=== PATIENT | male | born 1960 | race Caucasian/White ===

== ENCOUNTER 2016-10-24 19:14 | Emergency (ER) | payer OTHER ==
[2016-10-24] MEDS ORDERED: NS 0.9% 1000 ML* 1,000 ML IV ONE (19:39)
--- NOTE | 2016-10-24 20:13 | ED ---
Mayco Griffin Aidan, scribed for Nikhil Ohara MD on 10/24/16 at 2010 . Abdominal Pain/Male - HPI Summary HPI Summary: 55 y/o male presents to the ED with a complaint of acute, constant, moderate (4/ 10), mid-abdominal pain that began at 0900 this morning. Associated symptoms include 2 episodes of violent, brown vomiting, nausea, and 4 episodes of diarrhea today. The last time he vomited was just [employer]. According to the patient , he has only had a blueberry muffin, coffee, water, and marychuy beata today. Currently, he feels moderately better. According to his , he was last found well this morning just before heading to work. - History of Current Complaint Chief Complaint: EDNauseaVomitDiarrh Stated Complaint: N/V/D Time Seen by Provider: 10/24/16 19:35 Hx Obtained From: Patient, Family/Sales And Catering Coordinator - Onset/Duration: Sudden Onset, Lasting Hours, Resolved - the patient is currently feeling much better, however, his pain is not fully resolved Timing: Constant, Lasting Hours Severity Initially: Moderate Severity Currently: Mild Pain Intensity: 4 Pain Scale Used: 0-10 Numeric Location: Other - diffuse at middle abdomen Radiates: No Character: Sharp Aggravating Factor(s): Other: - unknown Alleviating Factor(s): Other: - unknown, however, the patient is currently feeling much better Associated Signs And Symptoms: Positive: Nausea, Vomiting - 2x, violent and brown, Diarrhea - 4x - Risk Factors Cardiac Risk Factors: Smoking - former smoker, Diabetes - Allergies/Home Medications Allergies/Adverse Reactions: Allergies Allergy/AdvReac Type Severity Reaction Status Date / Time Penicillins Allergy Severe Rash Verified 10/24/16 19:32 PMH/Surg Hx/FS Hx/Imm Hx Endocrine/Hematology History: Denies: Hx Diabetes, Hx Thyroid Disease Cardiovascular History: Reports: Hx Hypercholesterolemia, Hx Hypertension, Other Cardiovascular Problems/Disorders - TIA'03/HYPERCHOLESTEROLEMIA Respiratory History: Denies: Hx Asthma, Hx Chronic Obstructive Pulmonary Disease (COPD) GI History: Denies: Hx Ulcer Neurological History: Reports: Hx Transient Ischemic Attacks (TIA) - Surgical History Surgery Procedure, Year, and Place: Tonsillectomy as child Infectious Disease History: No Infectious Disease History: Denies: Hx Hepatitis, Hx Human Immunodeficiency Virus (HIV), History Other Infectious Disease, Traveled Outside the [place] in Last 30 Days - Family History Known Family History: Positive: Cardiac Disease, Diabetes - Social History Occupation: Employed Full-time Lives: With Family Alcohol Use: None Substance Use Type: Reports: None Hx Tobacco Use: Yes - CHEWING TOBBACCO Smoking Status (MU): Former Smoker Review of Systems Constitutional: Negative Eyes: Negative ENT: Negative Cardiovascular: Negative Respiratory: Negative Positive: Abdominal Pain, Vomiting, Diarrhea, Nausea Genitourinary: Negative Musculoskeletal: Negative Skin: Negative Neurological: Negative Psychological: Normal All Other Systems Reviewed And Are Negative: Yes Physical Exam Triage Information Reviewed: Yes Vital Signs On Initial Exam: Initial Vitals Temp Pulse Resp BP Pulse Ox 99.0 F 85 16 137/71 98 10/24/16 19:25 10/24/16 19:25 10/24/16 19:25 10/24/16 19:25 10/24/16 19:25 Vital Signs Reviewed: Yes Appearance: Positive: Well-Appearing, No Pain Distress Skin: Positive: Warm Head/Face: Positive: Normal Head/Face Inspection Eyes: Positive: TERRANCE ENT: Positive: Hearing grossly normal Neck: Positive: Supple Respiratory/Lung Sounds: Positive: Clear to Auscultation, Breath Sounds Present Cardiovascular: Positive: RRR Abdomen Description: Positive: Nontender, Soft Bowel Sounds: Positive: Present Musculoskeletal: Positive: Strength/ROM Intact Neurological: Positive: Sensory/Motor Intact, Alert, Oriented to Person Place, Time - [place] Coma Scale Coma Scale Total: 15 Diagnostics - Vital Signs Vital Signs Temp Pulse Resp BP Pulse Ox 10/24/16 19:25 99.0 F 85 16 137/71 98 - Laboratory Result Diagrams: 10/24/16 20:01 10/24/16 20:01 Lab Statement: Any lab studies that have been ordered have been reviewed, and results considered in the medical decision making process. Re-Evaluation - Re-Evaluation First Eval Change: Improved Abdominal Pain Fem Course/Dx - Course Course Of Treatment: 55 y/o male presents to the ED with a complaint of acute, constant, moderate (4/10), mid-abdominal pain that began at 0900 this morning. Associated symptoms include 2 episodes of violent, brown vomiting, nausea, and 4 episodes of diarrhea today. After examination, it is clear that the patient has gastroenteritis. - Diagnoses Provider Diagnoses: Gastroenteritis Discharge - Discharge Plan Condition: Stable Disposition: HOME Discharge Disposition Comment: Please follow up with your primary care physician within 2 days. Patient Education Materials: Gastroenteritis (ED) Referrals: Non Staff,Doctor [Primary Care Provider] - The documentation as recorded by the Mayco horton Aidan accurately reflects the service I personally performed and the decisions made by me, Nikhil Ohara MD.
[2016-10-24 20:14] LABS: Hematocrit 53 % (42-52); Mean Corpuscular HGB Conc 34 g/dl (31-36); Mean Corpuscular Hemoglobin 30 pg (27-31); Mean Corpuscular Volume 90 fL (80-94); Mean Platelet Volume 8 um3 (7.4-10.4); Red Cell Distribution Width 13 % (10.5-15); White Blood Count 11.4 10^3/ul (3.5-10.8)
[2016-10-24 20:26] LABS: Albumin 4.9 g/dL (3.2-5.2); BUN/Creatinine Ratio 22.9 (8-20); C Reactive Protein 20.53 mg/L (< 5.00); Calcium 9.4 mg/dL (8.6-10.3); EGFR Non-African American 64.6 (>60); Globulin 2.9 g/dL (2-4); Potassium 3.9 mmol/L (3.5-5.0); Total Bilirubin 2.8 mg/dL (0.2-1.0); Total Protein 7.8 g/dL (6.4-8.9)
[2016-10-24 21:23] VITALS: BP 129/64
== END 2016-10-24 21:21 | disposition home or self-care (01) ==
LOC: ED 19:14
DX: K52.9 Noninfective gastroenteritis and colitis, unspecified (principal); R11.2 Nausea with vomiting, unspecified; R19.7 Diarrhea, unspecified; R10.9 Unspecified abdominal pain; Z87.891 Personal history of nicotine dependence
CPT/HCPCS: 36415; 80053; 83690; 85025; 86140; 99282

== ENCOUNTER → 2017-05-03 09:05 | Emergency (ER) | payer OTHER ==
[~2017-05-03 09:05] MED LIST: Aspirin Low Dose CHEW TAB* 81 MG PO ONE; Ketorolac INJ* 30 MG/ML 1 ML VIAL IV PUSH ONE
[2017-05-03 10:13] LABS: Hematocrit 46 % (42-52); Hemoglobin 15.9 g/dl (14.0-18.0); Mean Corpuscular HGB Conc 35 g/dl (31-36); Mean Corpuscular Hemoglobin 31 pg (27-31); Mean Corpuscular Volume 90 fL (80-94); Mean Platelet Volume 8 um3 (7.4-10.4); Red Blood Count 5.09 10^6/ul (4.0-5.4); Red Cell Distribution Width 13 % (10.5-15); White Blood Count 5.4 10^3/ul (3.5-10.8)
--- NOTE | 2017-05-03 10:20 | RAD ---
Indication: Confusion. Remote history of LEFT-sided stroke. Comparison: February 28, 2004 Technique: Noncontrast CT vertex of skull through foramen magnum. Report: The sulci, ventricles, and basal cisterns are normal for age. Garcia matter white matter differentiation is preserved without evidence for edema. No intra or extra axial hemorrhage, mass, or fluid collection detected. Unremarkable visualized orbital contents. Unremarkable calvarium and skull base. Unremarkable scalp. The visualized paranasal sinuses and mastoid air spaces are clear. IMPRESSION: No acute intracranial process evident. Negative unenhanced head CT.
[2017-05-03 10:30] LABS: Albumin 4.6 g/dL (3.2-5.2); BUN/Creatinine Ratio 24.7 (8-20); Calcium 9.5 mg/dL (8.6-10.3); EGFR African American 103.7 (>60); EGFR Non-African American 80.7 (>60); Globulin 2.5 g/dL (2-4); Total Bilirubin 1.1 mg/dL (0.2-1.0); Total Protein 7.1 g/dL (6.4-8.9)
[2017-05-03 11:09] LABS: TSH (Thyroid Stimulating Horm) 0.76 mcIU/mL (0.34-5.60)
--- NOTE | 2017-05-03 11:38 | RAD ---
Indication: Chest pain. Hypertension. LEFT arm discomfort. Comparison: April 29, 2016 Technique: Upright AP 1030 hours Report: Clear lungs and pleural spaces. Negative for pneumothorax. The heart, pulmonary vasculature, and mediastinal contours are unremarkable. Unremarkable osseous structures and soft tissue contours. IMPRESSION: No evidence for acute intrathoracic disease.
[2017-05-03 12:18] LABS: Potassium 4.4 mmol/L (3.5-5.0)
[2017-05-03 13:18] VITALS: BP 136/80
--- NOTE | 2017-05-03 17:06 | ED ---
Liz Griffin SooYoung, scribed for Shashi Vieira MD on 05/03/17 at 0919 . Neurological HPI - HPI Summary HPI Summary: A 56 y/o M presents to ED with c/o L-sided shoulder pain radiating down LUE onset three days at work. 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 Associated sx: LUE tingling, diaphoresis. Per , pt is acting "off." Denies SOB, confusion, dizziness. Pain at onset was 8 out of 10, at bedside, he rates pain as 5 out of 10. Pt was drinking coffee at onset this AM. Pert PMHx: TIA. - History of Current Complaint Stated Complaint: LT ARM DISCOMFORT/DIZZY Time Seen by Provider: 05/03/17 09:11 Hx Obtained From: Patient, Family/Manufacturer Onset/Duration: Started days ago, Still Present Timing: Constant Onset Severity: Severe Current Severity: Moderate Pain Intensity: 5 - at bedside Pain Scale Used: 0-10 Numeric Associated Signs and Symptoms: Positive: Numbness - mild LUE tingling, Diaphoresis. Negative: Confusion, Dizziness, Shortness of Breath - Allergy/Home Medications Allergies/Adverse Reactions: Allergies Allergy/AdvReac Type Severity Reaction Status Date / Time Penicillins Allergy Severe Rash Verified 10/24/16 19:32 PMH/Surg Hx/FS Hx/Imm Hx Previously Healthy: No Endocrine/Hematology History: Denies: Hx Diabetes, Hx Thyroid Disease Cardiovascular History: Reports: Hx Hypercholesterolemia, Hx Hypertension, Hx Myocardial Infarction, Other Cardiovascular Problems/Disorders - TIA'03/ HYPERCHOLESTEROLEMIA Respiratory History: Denies: Hx Asthma, Hx Chronic Obstructive Pulmonary Disease (COPD) GI History: Denies: Hx Ulcer Neurological History: Reports: Hx Transient Ischemic Attacks (TIA) - Surgical History Surgery Procedure, Year, and Place: Tonsillectomy as child Infectious Disease History: Denies: Hx Hepatitis, Hx Human Immunodeficiency Virus (HIV), History Other Infectious Disease, Traveled Outside the [place] in Last 30 Days - Family History Known Family History: Positive: Cardiac Disease, Diabetes - Social History Occupation: Employed Full-time Lives: With Family Alcohol Use: None Hx Substance Use: No Substance Use Type: Reports: None Hx Tobacco Use: Yes - CHEWING TOBBACCO Smoking Status (MU): Former Smoker Review of Systems Positive: Skin Diaphoresis Negative: Shortness Of Breath Positive: Other - pos: L shoulder pain Neurological: Other - neg: dizziness, confusion Positive: Numbness - tingling LUE All Other Systems Reviewed And Are Negative: Yes Physical Exam - Summary Physical Exam Summary: VITAL SIGNS: Reviewed. GENERAL: Patient is a well-developed and nourished MALE who is lying comfortable in the stretcher. Patient is not in any acute respiratory distress. HEAD AND FACE: No signs of trauma. No ecchymosis, hematomas or skull depressions. No sinus tenderness. EYES: PERRLA, EOMI x 2, No injected conjunctiva, no nystagmus. EARS: Hearing grossly intact. Ear canals and tympanic membranes are within normal limits. MOUTH: Oropharynx within normal limits. NECK: Supple, trachea is midline, no adenopathy, no JVD, no carotid bruit, no c- spine tenderness, neck with full ROM. CHEST: Symmetric, no tenderness at palpation LUNGS: Clear to auscultation bilaterally. No wheezing or crackles. CVS: Regular rate and rhythm, S1 and S2 present, no murmurs or gallops appreciated. ABDOMEN: Soft, non-tender. No signs of distention. No rebound, no guarding, and no masses palpated. Bowel sounds are normal. EXTREMITIES: FROM in all major joints, no edema, no cyanosis or clubbing. Tenderness in left upper back. NEURO: Alert and oriented x 3. No acute neurological deficits. Speech is normal and follows commands. SKIN: Dry and warm Triage Information Reviewed: Yes Vital Signs On Initial Exam: Initial Vitals Temp Pulse Resp BP Pulse Ox 97.7 F 57 17 131/87 98 05/03/17 09:13 05/03/17 09:13 05/03/17 09:13 05/03/17 09:13 05/03/17 09:13 Vital Signs Reviewed: Yes Diagnostics - Vital Signs Vital Signs Temp Pulse Resp BP Pulse Ox 05/03/17 13:00 52 15 136/80 97 05/03/17 12:29 138/89 05/03/17 12:21 12 05/03/17 12:00 49 13 95 05/03/17 11:00 51 15 95 05/03/17 10:00 52 15 95 05/03/17 09:30 53 18 148/73 95 05/03/17 09:16 20 131/87 05/03/17 09:13 97.7 F 57 17 131/87 98 - Laboratory Lab Results: Lab Results 05/03/17 05/03/17 05/03/17 Range/Units 09:58 09:58 09:58 WBC 5.4 (3.5-10.8) 10^3/ul RBC 5.09 (4.0-5.4) 10^6/ul Hgb 15.9 (14.0-18.0) g/dl Hct 46 (42-52) % MCV 90 (80-94) fL MCH 31 (27-31) pg MCHC 35 (31-36) g/dl RDW 13 (10.5-15) % Plt Count 199 (150-450) 10^3/ul MPV 8 (7.4-10.4) um3 Neut % (Auto) 63.3 (38-83) % Lymph % (Auto) 22.9 L (25-47) % Marathon % (Auto) 9.5 H (1-9) % Eos % (Auto) 3.3 (0-6) % Baso % (Auto) 1.0 (0-2) % Absolute Neuts (auto) 3.4 (1.5-7.7) 10^3/ul Absolute Lymphs (auto) 1.2 (1.0-4.8) 10^3/ul Absolute Monos (auto) 0.5 (0-0.8) 10^3/ul Absolute Eos (auto) 0.2 (0-0.6) 10^3/ul Absolute Basos (auto) 0.1 (0-0.2) 10^3/ul Absolute Nucleated RBC 0 10^3/ul Nucleated RBC % 0 Sodium 135 (133-145) mmol/L Potassium 4.4 (3.5-5.0) mmol/L Chloride 105 (101-111) mmol/L Carbon Dioxide 23 (22-32) mmol/L Anion Gap 7 (2-11) mmol/L BUN 24 (6-24) mg/dL Creatinine 0.97 (0.67-1.17) mg/dL Est GFR ( Amer) 103.7 (>60) Est GFR (Non-Af Amer) 80.7 (>60) BUN/Creatinine Ratio 24.7 H (8-20) Glucose 121 H (70-100) mg/dL Calcium 9.5 (8.6-10.3) mg/dL Magnesium 2.0 (1.9-2.7) mg/dL Total Bilirubin 1.10 H (0.2-1.0) mg/dL AST 16 (13-39) U/L ALT 24 (7-52) U/L Alkaline Phosphatase 60 (34-104) U/L Total Creatine Kinase 140 (10-223) U/L CK-MB (CK-2) 2.6 (0.6-6.3) ng/mL Myoglobin 24.0 (17.4-105.7) ng/mL Troponin I 0.00 (<0.04) ng/mL B-Natriuretic Peptide 12 ( - 100) pg/mL Total Protein 7.1 (6.4-8.9) g/dL Albumin 4.6 (3.2-5.2) g/dL Globulin 2.5 (2-4) g/dL Albumin/Globulin Ratio 1.8 (1-3) TSH 0.76 (0.34-5.60) mcIU/mL 05/03/17 Range/Units 12:32 WBC (3.5-10.8) 10^3/ul RBC (4.0-5.4) 10^6/ul Hgb (14.0-18.0) g/dl Hct (42-52) % MCV (80-94) fL MCH (27-31) pg MCHC (31-36) g/dl RDW (10.5-15) % Plt Count (150-450) 10^3/ul MPV (7.4-10.4) um3 Neut % (Auto) (38-83) % Lymph % (Auto) (25-47) % [place] % (Auto) (1-9) % Eos % (Auto) (0-6) % Baso % (Auto) (0-2) % Absolute Neuts (auto) (1.5-7.7) 10^3/ul Absolute Lymphs (auto) (1.0-4.8) 10^3/ul Absolute Monos (auto) (0-0.8) 10^3/ul Absolute Eos (auto) (0-0.6) 10^3/ul Absolute Basos (auto) (0-0.2) 10^3/ul Absolute Nucleated RBC 10^3/ul Nucleated RBC % Sodium (133-145) mmol/L Potassium (3.5-5.0) mmol/L Chloride (101-111) mmol/L Carbon Dioxide (22-32) mmol/L Anion Gap (2-11) mmol/L BUN (6-24) mg/dL Creatinine (0.67-1.17) mg/dL Est GFR ( Amer) (>60) Est GFR (Non-Af Amer) (>60) BUN/Creatinine Ratio (8-20) Glucose (70-100) mg/dL Calcium (8.6-10.3) mg/dL Magnesium (1.9-2.7) mg/dL Total Bilirubin (0.2-1.0) mg/dL AST (13-39) U/L ALT (7-52) U/L Alkaline Phosphatase (34-104) U/L Total Creatine Kinase (10-223) U/L CK-MB (CK-2) (0.6-6.3) ng/mL Myoglobin (17.4-105.7) ng/mL Troponin I 0.00 (<0.04) ng/mL B-Natriuretic Peptide ( - 100) pg/mL Total Protein (6.4-8.9) g/dL Albumin (3.2-5.2) g/dL Globulin (2-4) g/dL Albumin/Globulin Ratio (1-3) TSH (0.34-5.60) mcIU/mL Result Diagrams: 05/03/17 09:58 05/03/17 09:58 Lab Statement: Any lab studies that have been ordered have been reviewed, and results considered in the medical decision making process. - Radiology CXR Xray Interpretation: No Acute Changes - IMPRESSION: No evidence for acute intrathoracic dz. ED physician has reviewed this radiology report and agrees Radiology Interpretation Completed By: Radiologist - CT BRAIN CT CT Interpretation: No Acute Changes - IMPRESSION: No acute intracranial pathology is evident. Negative unenhanced head CT. ED physician has reviewed this radiology report and agrees CT Interpretation Completed By: Radiologist - EKG 0948 Cardiac Rate: Bradycardia - 51bpm EKG Rhythm: Sinus Bradycardia ST Segment: Normal - no ST elevation EKG Comparison: No Significant Change - from 03/01/2015 Re-Evaluation - Re-Evaluation 1 Re-Evaluation Time: 12:49 Change: Improved Comment: Discussing results wth pt, and plans for dispo if second troponin is neg. Course/Dx - Course Course Of Treatment: A 56 y/o M presents to ED with c/o L-sided shoulder pain radiating down LUE onset three days at work. 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 Associated sx: LUE tingling, diaphoresis. Per , pt is acting "off." Denies SOB, confusion, dizziness. Pain at onset was 8 out of 10, at bedside, he rates pain as 5 out of 10. Pt was drinking coffee at onset this AM. Pert PMHx: TIA. Test reslts are without significant abnormality except glucose 121, first trop was 0.00 and second trop four hours later remains 0.00. CXR shows no acute pathology. I decided to order a head CT, because pt had an "off feeling." CT was neagtive. Pt given toradol for pain and sx resolved. Pt was observed for more than 4 hours and sx did not return. D/C home to f/u with PCP. - Differential Dx Differential Diagnoses Neuro: Positive: Cerebrovascular Accident, Seizure Disorder, Transient Ischemic Attack - SHoulder pain, Upper back pain - Diagnoses Provider Diagnoses: Shoulder pain, Musculoskeletal pain Discharge - Discharge Plan Condition: Stable Disposition: HOME Patient Education Materials: Shoulder Pain (ED) Referrals: Sheila Moreira MD [Primary Care Provider] - 2 Days Additional Instructions: Please follow up with your Primary Care Provider in 2-3 days. Please return to the ED if you experience new or worsening symptoms. The documentation as recorded by the Liz horton SooYoung accurately reflects the service I personally performed and the decisions made by me, Shashi Vieira MD.
== END | disposition home or self-care (01) ==
LOC: ED 09:05
DX: M25.512 Pain in left shoulder (principal); M79.1 Myalgia; E78.00 Pure hypercholesterolemia, unspecified; I10 Essential (primary) hypertension; I25.2 Old myocardial infarction; Z86.73 Personal history of transient ischemic attack (TIA), and cerebral infarction without residual deficits; Z87.891 Personal history of nicotine dependence
CPT/HCPCS: 36415; 70450; 71010; 80053; 82550; 82553; 83735; 83874; 83880; 84443; 84484; 85025; 93005; 96374; 99282; A9270-GY; J1885

== ENCOUNTER 2019-04-09 16:03 | Emergency (ER) | payer OTHER ==
[2019-04-09 16:16] VITALS: BP 122/60
--- NOTE | 2019-04-09 16:43 | UC ---
Skin Complaint HPI - HPI Summary HPI Summary: ONSET YESTERDAY OF ITCHY RED RASH ON BOTH ARMS AND CHIN. PATIENT DENIES RESPIRATORY DISTRESS. NO TONGUE/LIP SWELLING. WORKS OUTSIDE IN CONSTRUCTION. - History of Current Complaint Chief Complaint: UCRash Time Seen by Provider: 04/09/19 16:32 Stated Complaint: rash Hx Obtained From: Patient Onset/Duration: Gradual Onset, Lasting Days - 1 DAY, Still Present Timing: Constant Onset Severity: Moderate Current Severity: Moderate Pain Intensity: 3 Pain Scale Used: 0-10 Numeric Character: Pruritus, Redness Aggravating Factor(s): Touch Alleviating Factor(s): Nothing Associated Signs & Symptoms: Positive: Rash. Negative: Nausea, Fever, Tenderness, Joint Swelling - Allergy/Home Medications Allergies/Adverse Reactions: Allergies Allergy/AdvReac Type Severity Reaction Status Date / Time Penicillins Allergy Rash Verified 04/09/19 16:11 Home Medications: Home Medications Acetaminophen [Mapap] 1,000 mg PO ONCE PRN 04/09/19 [History Confirmed 04/09/19] PMH/Surg Hx/FS Hx/Imm Hx Cardiovascular History: Hypertension Neurological History: CVA - Surgical History Surgical History: Yes Surgery Procedure, Year, and Place: Tonsillectomy as child - Family History Known Family History: Positive: Cardiac Disease, Diabetes - Social History Alcohol Use: Rare Substance Use Type: None Smoking Status (MU): Former Smoker Review of Systems All Other Systems Reviewed And Are Negative: Yes Constitutional: Positive: Negative Skin: Positive: Rash Respiratory: Positive: Negative Cardiovascular: Positive: Negative Gastrointestinal: Positive: Negative Physical Exam Triage Information Reviewed: Yes Appearance: Well-Appearing, No Pain Distress, Well-Nourished Vital Signs: Initial Vital Signs Temp 98.8 F 04/09/19 16:07 Pulse 56 04/09/19 16:07 Resp 18 04/09/19 16:07 BP 122/60 04/09/19 16:07 Pulse Ox 97 04/09/19 16:07 Vital Signs Reviewed: Yes Eyes: Positive: Conjunctiva Clear ENT: Positive: Hearing grossly normal Neck: Positive: Supple Respiratory: Positive: No respiratory distress, No accessory muscle use Cardiovascular: Positive: Pulses Normal Abdomen Description: Positive: Soft Musculoskeletal: Positive: No Edema Neurological: Positive: Alert Psychological: Positive: Age Appropriate Behavior Skin: Positive: Rashes - MACULOPAPULAR ERYTHEMATOUS RASH BILATERAL UPPER EXTREMITIES. SMALL SPOT RIGHT CHIN. NO EXCORIATIONS OR DRAINAGE Course/Dx - Diagnoses Provider Diagnosis: Contact dermatitis Discharge ED - Sign-Out/Discharge Documenting (check all that apply): Patient Departure All imaging exams completed and their final reports reviewed: No Studies - Discharge Plan Condition: Stable Disposition: HOME Prescriptions: predniSONE TAB* [Deltasone TAB*] 50 mg PO DAILY #5 tab Patient Education Materials: Contact Dermatitis (ED) Referrals: Sheila Moreira MD [Primary Care Provider] - If Needed Additional Instructions: USE DAILY HYPOALLERGENIC MOISTURIZING LOTION TAKE PREDNISONE DAILY PRESCRIBED AVOID HEAT AND HOT WATER TAKE OTC ANTIHISTAMINE DAILY (CLARITIN (LORATADINE), ZYRTEC (CETIRIZINE) OR ASHA (FEXOFENADINE) IN THE MORNING, 25-50MG BENADRYL AT NIGHT) DO NOT SCRATCH KEEP COOL, CLEAN AND DRY USE OTC TOPICAL STEROID SPARINGLY 2-3 TIMES DAILY ON ITCHY SPOTS IF NEEDED. KEEP AWAY FROM MUCOUS MEMBRANES. GO TO THE ED WITHOUT FAIL IF YOU DEVELOP ANY RESPIRATORY INVOLVEMENT, TONGUE/ LIP SWELLING, FEVER, NAUSEA/VOMITING OR ANY OTHER CONCERNING SYMPTOMS. IF YOU HAVE RECURRENT SYMPTOMS CONSIDER EVAL BY AN HAY BUCKLER. [facility] Address: [facility] [address], [place] [address] [facility] [address] [place] [address] , [address] [place], [place] [address] - Billing Disposition and Condition Condition: STABLE Disposition: Home
== END 2019-04-09 16:57 | disposition home or self-care (01) ==
LOC: UCEAST 16:03
DX: L25.9 Unspecified contact dermatitis, unspecified cause (principal); I10 Essential (primary) hypertension; Z86.73 Personal history of transient ischemic attack (TIA), and cerebral infarction without residual deficits; Z88.0 Allergy status to penicillin; Z87.891 Personal history of nicotine dependence
CPT/HCPCS: 99212; G0463